=== PATIENT | female | born 1995 | race African-American/Black ===

== ENCOUNTER → 2016-10-16 | Outpatient (REF) | payer OTHER, SELFPAY | LOC: M LAB REF 16:51 | PROVIDERS: ATTEND Nurse Practitioner Women's Health | DX: N39.0 Urinary tract infection, site not specified (principal) ==

== ENCOUNTER → 2017-10-22 | Outpatient (CLI) | payer OTHER ==
[2017-10-22 11:55] LABS: BASO % 0.6 % (0.0-1.0); EOS % 1.1 % (0.0-3.0); HEMATOCRIT 37.2 % (36.0-47.0); HEMOGLOBIN 11.7 g/dl (12.0-15.5); LYMPH # 1.4 10^3/uL (1.5-6.5); MEAN CORPUSCULAR HEMOGLOBIN 28.3 pg (27.0-33.0); MEAN CORPUSCULAR HGB CONC 31.5 g/dl (32.0-36.5); MEAN CORPUSCULAR VOLUME 90.1 fl (80.0-96.0); MONO % 8.6 % (0.0-5.0); NEUTROPHILS # 1.9 10^3/uL (1.8-7.7); NEUTROPHILS % 51.7 % (36.0-66.0); PLATELET COUNT, AUTOMATED 289 10^3/uL (150-450); RED BLOOD COUNT 4.13 10^6/uL (4.00-5.40); RED CELL DISTRIBUTION WIDTH 14.9 % (11.5-14.5); WHITE BLOOD COUNT 3.6 10^3/uL (4.0-10.0)
[2017-10-22 11:56] LABS: MONO # 0.3 10^3/uL (0.0-0.8)
[2017-10-22 12:21] LABS: CHOLESTEROL LEVEL 123 MG/DL (<200); CHOLESTEROL RISK RATIO 1.835 (<5); HDL CHOLESTEROL 67 MG/DL (>40); LDL CHOLESTEROL 46.2 MG/DL (<100); NON-HDL-C 56 MG/DL; TRIGLYCERIDES LEVEL 49 MG/DL (<150)
[2017-10-22 14:41] LABS: TOTAL 25(OH) VITAMIN D 15.1 NG/ML (30.0-100.0)
[2017-10-22 15:21] LABS: HIV 1&2 SCREEN CENTAUR NEGATIVE (NEGATIVE)
[2017-10-22 16:17] LABS: CHLAMYDIA DNA AMPLIFICATION POSITIVE (NEGATIVE); GC DNA AMPLIFICATION NEGATIVE (NEGATIVE)
== END ==
LOC: M LAB 11:23
DX: Z00.121 Encounter for routine child health examination with abnormal findings (principal)
CPT/HCPCS: 82306